=== PATIENT | female | born 2000 | race Caucasian/White ===

== ENCOUNTER 2025-03-03 12:50 | Emergency (ER) | payer SELFPAY ==
[~2025-03-03] VITALS: Ht 172.7 cm; Wt 127.3 kg
--- NOTE | 2025-03-03 13:01 | Physician Documentation ---
History of Present Illness ~ Stated Complaint: ARM PAIN Time Seen by MD: 12:59 HPI 24 Year old female presents to the emergency department reporting that she fell on her right hand. Reports that she was on a porch, and fell off onto her hand while she was cleaning. She notes that she is . Medication Reconciliation Allergies: Coded Allergies: No Known Allergies (Unverified , 03/03/25) Physical Exam Physical Exam General: Alert, moderate distress due to pain. Neck: Full range of motion. Respiratory: Lungs clear, no respiratory distress. Chest: No accessory muscle use. Cardiovascular: Regular rate and rhythm, no murmurs. Gastrointestinal: Soft, nontender, nondistended. Bowels sounds present. Extremities: Swelling right hand at bases of 4th and 5th digits. Reduced/painful ROM. Neurologic: Oriented x4. Psychiatric: Normal mood and affect. Skin: Normal color, warm and dry. No edema, no ecchymosis. Progress Progress Note 1455: Ulnar gutter splint placed by performing arts technicians. Distal CMS intact after placement. Results/Orders Results/Orders Orders - ZULY ROSE [employer] Hand, Complete (3vw Min) (03/03/25 12:59) Ortho Orders (03/03/25 ) Completed Orders - ZULY ROSE [employer] Hand, Complete (3vw Min) (03/03/25 12:59) Hydrocodone/Apap 5/325mg Tab ([place] 5/32 (03/03/25 14:05) Naproxen Tablet (Naprosyn Tablet) (03/03/25 14:05) Ondansetron Disint. Tablet (Zofran Odt T (03/03/25 14:05) Medications Received in ER Medications (Trade) Dose Ordered Sig/Lashawn Route PRN Reason Start Time Stop Time Status Last Admin Dose Admin ([place] 5/325mg tablet) 1 tab ONCE ONCE PO 03/03/25 14:05 03/03/25 14:06 DC 03/03/25 14:12 1 TAB (Naprosyn tablet) 500 mg ONCE ONCE PO 03/03/25 14:05 03/03/25 14:06 DC 03/03/25 14:12 500 MG (Zofran ODT tablet) 4 mg ONCE ONCE PO 03/03/25 14:05 03/03/25 14:06 DC 03/03/25 14:12 4 MG Vital Signs 03/03/25 03/03/25 12:58 14:12 Temp 98.4 Pulse 100 Resp 20 16 B/P (MAP) 143/92 Pulse Ox 97 O2 Flow Rate 0 EKG/XRAY/CT/US/VASC/MRI Bone/Soft Tissue X-Ray (Spine) : Additional Comment [facility] [address] [facility], [facility] [address] DIAGNOSTIC RADIOLOGY Patient: MELECIO RAZO Medical Record: [id number] [facility] : 2000, Age: 24 Sex: Female Location: ER Patient Status: [facility] ER Service Date/Time: 03/03/25/ 1259 Ordering Physician: ZULY ROSE NP Exam: HAND, COMPLETE (3VW MIN) X-ray right hand Technique: AP lateral and oblique views REASON FOR EXAM: trauma right hand INDICATION: trauma right hand FINDINGS: Comminuted fracture base of the 5th metacarpal with slight volar angulation. IMPRESSION: 1. Comminuted fracture base of the right 5th metacarpal with volar angulation. Electronically Signed by:DELORES LE MD Date & Time: 03/03/251331 Dictated by: DELORES LE MD Dictation date and time: 03/03/251331 Primary Care Provider: NO PRIMARY CARE PROVIDER cc: ZULY ROSE [employer] ~ Departure Time of Disposition: 14:37 Disposition: 01 HOME / SELF CARE / HOMELESS Impression: Primary Impression: Fracture of hand Qualified Codes: S62.91XA - Unspecified fracture of right wrist and hand, initial encounter for closed fracture Condition: Stable Discharge Instructions: Cast or Splint Care, Adult Additional Instructions: You were placed in a splint. Leave this intact until you see ortho. Please see your primary care within the next few days and request referral to ortho. Ice to the sore area x at least 15 minutes four times daily. Take the prescribed pain medication as needed for pain. (Minimize use as much as possible as although these medications are safe in , medication use during should be as minimal as possible) Return if worse. Referrals: NO PRIMARY CARE PROVIDER (PCP) IDALIA LUI MD Prescriptions Naproxen (Naproxen) 500 Mg Tablet 1 TAB PO Q12H, #20 TAB Prov: ZULY ROSE NP 03/03/25 Hydrocodone Bit/Acetaminophen 5/325 MG ([place] 5/325 MG) 5 Mg/325 Mg Tablet 1 TAB PO Q6H PRN for pain for 7 Days, #9 TAB Prov: ZULY ROSE NP 03/03/25 Education Educated: Patient, Family Educated regarding: diagnosis, treatment, prognosis, need for follow up Signature Scribe Signature: x Attestation: The note accurately reflects work and decisions made by me.Zuly Mata NP 03/03/25 14:54 ZULY ROSE NP Mar 03, 2025 13:01
--- NOTE | 2025-03-03 13:35 | RADIOLOGY REPORT ---
X-ray right hand Technique: AP lateral and oblique views REASON FOR EXAM: trauma right hand INDICATION: trauma right hand FINDINGS: Comminuted fracture base of the 5th metacarpal with slight volar angulation. IMPRESSION: 1. Comminuted fracture base of the right 5th metacarpal with volar angulation.
[2025-03-03] MEDS: ondansetron 4mg rapidly disintigrating tab PO ONE (14:12)
[2025-03-03] MEDS: HYDROcodone/acetaminophen 5mg/325mg tablet PO ONE (14:12)
[2025-03-03] MEDS ORDERED: NAPR-56 PO (14:53)
[2025-03-03] MEDS ORDERED: HYDR-3965 PO (14:53)
[2025-03-03 15:01] VITALS: BP 136/78; PULSE 70; RESP 18; TEMP 98.4; O2SAT 99
== END 2025-03-03 15:03 | disposition home or self-care (01) ==
LOC: ER 12:51
DX: O9A.219 Injury, poisoning and certain other consequences of external causes complicating pregnancy, unspecified trimester (principal); S62.316A Displaced fracture of base of fifth metacarpal bone, right hand, initial encounter for closed fracture; Z3A.00 Weeks of gestation of pregnancy not specified; W50.0XXA Accidental hit or strike by another person, initial encounter; Y93.89 Activity, other specified; Y92.89 Other specified places as the place of occurrence of the external cause; Y99.8 Other external cause status
CPT/HCPCS: 29125; 73130; 99284; A6446; A6449